=== PATIENT | female | born 1955 | race Caucasian/White ===

== ENCOUNTER 2018-06-02 23:52 | Emergency (ER) | payer MEDICARE ==
[2018-06-03] MEDS ORDERED: Cyclopentolate 1% Opth Drop 2 ML BOT ONE ×2 (01:13→01:20)
[2018-06-03] MEDS ORDERED: Proparacaine 0.5% Opth 15 ML BOT ONE (01:13)
[2018-06-03] MEDS ORDERED: Fluorescein Opthalmic Strip ONE (01:13)
[2018-06-03] MEDS ORDERED: Ketorolac Tromethamine 30 MG/ML VIAL ONE (01:13)
[2018-06-03] MEDS ORDERED: Ciprofloxacin HCL/Dexameth Otic Drops 7.5 ml Bottle ONE (01:20)
== END 2018-06-03 02:45 | disposition home or self-care (01) ==
LOC: ERS 23:52
DX: H20.9 Unspecified iridocyclitis (principal); Z71.6 Tobacco abuse counseling; E11.9 Type 2 diabetes mellitus without complications; F17.210 Nicotine dependence, cigarettes, uncomplicated; Z79.84 Long term (current) use of oral hypoglycemic drugs; Z79.899 Other long term (current) drug therapy
CPT/HCPCS: 36415; 85652; 86140; 96372; 99406; J1885